=== PATIENT | female | born 1975 | race Caucasian/White ===

== ENCOUNTER 2018-04-21 08:04 | Inpatient (IN) | payer OTHER ==
[2018-04-20 08:35] VITALS: BMI 43.4
[2018-04-21] MEDS ORDERED: BUPIVACAINE HCL/PF 0.5% (5MG/ML) 10 ML VIAL ONE (09:16)
[2018-04-21] MEDS ORDERED: fentaNYL CITRATE 250 MCG/5 ML VIAL ONE (09:30)
[2018-04-21] MEDS ORDERED: DEXAMETHASONE SOD PHOSPHATE 4 MG/1 ML VIAL ONE (09:31)
[2018-04-21] MEDS ORDERED: PROPOFOL 20 ML ONE (09:31)
[2018-04-21] MEDS ORDERED: MIDAZOLAM HCL 2 MG/2 ML SINGLE DOSE VIAL ONE ×3 (09:31→09:52)
[2018-04-21] MEDS ORDERED: ROCURONIUM BROMIDE 50 MG/5 ML VIAL ONE (09:31)
[2018-04-21] MEDS ORDERED: LIDOCAINE HCL/PF 2% SDV 5ML VIAL ONE (09:31)
[2018-04-21] MEDS ORDERED: DEXAMETHASONE SOD PHOSPHATE/PF 10 MG/ML SDV ONE (09:51)
[2018-04-21] MEDS ORDERED: ROPIVACAINE HCL 0.5% 30ML VIAL ONE (09:51)
--- NOTE | 2018-04-21 09:57 | HP ---
History & Physical Update - History History: No Change - Physical Physical: No Change - Assessment Assessment: No Change - Plan Plan: No Change (Initial H&P is complete/accurate and locate din patient's paper chart. No new complaints or medications.)
[2018-04-21] MEDS ORDERED: ceFAZolin SODIUM 1 GM VIAL IVPB ONE (10:25)
[2018-04-21] MEDS ORDERED: DESFLURANE GAS 240 ML BOTTLE IH ONE (10:43)
[2018-04-21] MEDS ORDERED: ONDANSETRON 4 MG/2 ML VIAL IVPUSH PRN (12:41)
[2018-04-21] MEDS ORDERED: LACTATED RINGERS SOLUTION 1,000 ML IV SCH (12:45)
[2018-04-21] MEDS ORDERED: BUPIVACAINE HCL/PF (5 MG/ML) 30 ML VIAL IJ ONE (12:52)
--- NOTE | 2018-04-21 13:03 | OP ---
<Keith Jimenez - Last Filed: 04/21/18 13:01> Operative Note - Note: Operative Date: 04/21/18 Pre-Operative Diagnosis: Morbid obesity due to excess calories Operation: Robotic sleeve gastrectomy Post-Operative Diagnosis: Same as Pre-op Surgeon: Jeremy Raygoza Financial Reporting Specialist: Keith Jimenez Anesthesia: General Estimated Blood Loss (mls): 50 Fluid Volume Replaced (mls): 800 Operative Report Dictated: Yes <Jeremy Raygoza - Last Filed: 04/21/18 13:22> Operative Note - Note: Operation: Robotic lysis of adhesions, wedge liver biopsy, EGD Post-Operative Diagnosis: Other (Hepatomegaly, intraabdominal adhesions) Specimens Removed: Greater curvature of the stomach, wedge liver biopsy
[2018-04-21] MEDS ORDERED: HYDROmorphone HCL CARPU-JECT 1 MG/1 ML DISP.SYRIN IVPB PRN ×2 (13:04→13:29)
--- NOTE | 2018-04-21 13:04 | SURG ---
Surgery Stock Counter Note Stock Counter: Keith Jimenez PA-C Date of Service: 04/21/18 Diagnosis: Morbid obesity due to excess calories Procedure: Robotic sleeve gastrectomy I was present for the entirety of the operative procedure. For further detail, please refer to operative report.
[2018-04-21] MEDS ORDERED: FAMOTIDINE 20 MG/50 ML IVPB 20 MG/50 ML MG IVPB ONE ×2 (13:15→15:15)
[2018-04-21] MEDS: ACETAMINOPHEN 1000 MG/100 ML VIAL (NON FORMULARY) IVPB SCH ×2 (13:23→20:48)
[2018-04-21] MEDS ORDERED: morphine SULFATE 4 MG/ML VIAL IVPUSH PRN (13:50)
[2018-04-21] MEDS: SODIUM CHLORIDE 1,000 ML IV SCH ×2 (14:00→22:00)
[2018-04-21] MEDS: METOCLOPRAMIDE HCL INJECTION 10 MG/2 ML VIAL IVPUSH SCH ×2 (14:40→20:47)
[2018-04-21 14:58] LABS: HEMATOCRIT 36.9 % (32.4-45.2); HEMOGLOBIN 11.5 GM/dL (10.7-15.3); MCH 21.3 pg (25.7-33.7); MCHC 31.2 g/dl (32.0-36.0); MEAN CELL VOLUME 68.3 fl (80-96); MEAN PLT VOLUME 8.8 fl (7.5-11.1); PLATELET COUNT 236 K/MM3 (134-434); RDW 14.6 % (11.6-15.6); WHITE BLOOD COUNT 14.9 K/mm3 (4.0-10.0)
[2018-04-21 15:17] LABS: ALBUMIN 3.5 g/dl (3.4-5.0); ANION GAP 12 (8-16); BLOOD UREA NITROGEN 14 mg/dL (7-18); CALCIUM 8.1 mg/dL (8.5-10.1); CHLORIDE 103 mmol/L (98-107); CO2 23 mmol/L (21-32); CREATININE 0.8 mg/dL (0.55-1.02); GLUCOSE,RANDOM 139 mg/dL (74-106); POTASSIUM 4.3 mmol/L (3.5-5.1); SODIUM 138 mmol/L (136-145)
[2018-04-21 15:19] LABS: ALK PHOS 48 U/L (45-117); BILIRUBIN,TOTAL 0.4 mg/dL (0.2-1.0); TOT PROT 6.9 g/dl (6.4-8.2)
[2018-04-21 15:32] LABS: SGOT/AST 466 U/L (15-37); SGPT/ALT 508 U/L (12-78)
--- NOTE | 2018-04-21 16:33 | SPEC ---
DATE OF OPERATION: 04/21/2018 SURGEON: Jeremy Raygoza MD RETAIL FIELD REPRESENTATIVE: Keith Jimenez PA-C and JIM Banda PREOPERATIVE DIAGNOSES: 1. Morbid obesity. 2. Body mass index of 43.4. POSTOPERATIVE DIAGNOSES: 1. Morbid obesity. 2. Body mass index of 43.4. 3. Intra-abdominal adhesions. 4. Hepatomegaly. PROCEDURES: 1. Diagnostic laparoscopy. 2. Robotic vertical sleeve gastrectomy. 3. Robotic lysis of adhesions. 4. Robotic wedge liver biopsy. 5. Esophagogastroduodenoscopy. SPECIMEN: 1. Greater curvature of stomach. 2. Wedge liver biopsy. ESTIMATED BLOOD LOSS: 50 mL DRAIN: None. BOUGIE: Size 36-Kenyan. ANESTHESIA: GET. REASON FOR PROCEDURE: This is a 42-year-old female who presented to the office for weight loss options. After describing different options, she decided to proceed with a robotic, possible open vertical sleeve gastrectomy and possible wedge liver biopsy and upper endoscopy. RISKS AND BENEFITS: After describing the different options for management of weight loss, the patient decided to proceed with a robotic laparoscopic, possible open vertical sleeve gastrectomy. The patient was seen by the respective subspecialities and cleared for surgery. The risks and benefits of the procedure were explained. These included bleeding, infection, hernia, OH, DVT, PE, injury to surrounding structures including the liver, colon, bowel, spleen, esophagus, vessel injury, nerve injury, weight regain, gastric leak, staple line leak, sleeve leak, obstruction, vitamin deficiency, hair loss, and as some of the possible complications. The patient understood and signed informed consent. DESCRIPTION OF PROCEDURE: The patient was placed supine on the operating room table. The patient underwent general endotracheal intubation. A Prescott catheter was inserted by the nursing staff. The arms were brought out at 90 degrees and secured. A foot board was placed and the legs were secured laterally with padding. The abdomen was prepped and draped in the usual sterile fashion. A time-out was performed. An incision was made superior and to the left of the umbilicus. A Veress needle was inserted. Pneumoperitoneum was established. Subsequently the Veress needle was removed. An 8-mm robotic trocar was placed under direct visualization with the laparoscope. Inspection of the abdominal cavity was performed. An 8-mm trocar was then placed in the left abdominal wall approximately 6 to 7 cm to the left of the initial trocar. An 8-mm robotic trocar was then placed in the left abdominal wall approximately 6 to 7 cm to the left of the initial trocar. A 12-mm robotic trocar was then placed in the right abdominal wall approximately 6 to 7 cm to the right of the initial trocar and an 8-mm robotic trocar placed approximately 6 to 7 cm lateral to the 12-mm trocar. A stab wound was made in the subxiphoid area and a Geri clamp inserted and removed to dilate the tract. A Rahul liver retractor was inserted. The post was secured at the bedside by the nursing staff. The patient was placed in steep reverse Trendelenburg position and the Rahul liver retractor was used to secure the liver towards the anterior abdominal wall. The robot was brought over the field and docked. Dissection was performed at the console. The pylorus was identified and 6 cm proximal to it the lesser sac was entered using the vessel sealer. From this point cephalad all lateral attachments to the greater curvature of the stomach including the short gastric vessels were ligated using the vessel sealer towards the gastrosplenic and gastrophrenic ligaments. Once this was done in its entirety, all tubes within the nasal or oropharyngeal cavity including a temperature probe was confirmed to be removed by Anesthesia. The bougie was then inserted by Anesthesia. Transection of the stomach was then begun staying adjacent to the bougie, but away from the angularis. Transection of the stomach was performed near the portion of the stomach where the lesser sac was entered. Two robotic green vickie were used at this location. Robotic blue vickie were then used for the remainder of the transection until the greater curvature of the stomach was fully transected. Again this was done staying close to the bougie. Care was taken to stay away from the angle of His cephalad. The staple line was then inspected. Hemostasis was identified. A leak test was then performed. The stomach was clamped distally to the staple line. Irrigation solution was placed in the left upper quadrant and air insufflated by Anesthesia into the sleeve. No leaks were identified and no obstruction was identified. This was done throughout the staple line. At this point, the irrigation solution was suctioned and again hemostasis noted. A wedge liver biopsy was then performed. A portion of the left lobe of the liver was identified and an edge of it grasped. Using electrocautery a wedge of this portion of the liver was excised. The specimen was removed from the abdominal cavity and sent off the field. Hemostasis of the biopsy site as attained using electrocautery. The robotic instruments were then removed. The robot was undocked from the operative field. The 12-mm robotic trocar was removed and the greater curvature specimen removed from this site using a sponge stick wetzel. The specimen was inspected and the Veress needle inserted. The specimen insufflated adequately and no leak was identified. The staple line was noted to be straight and intact. A Jude-Cristian device was then used to close the fascia with a 0 Vicryl suture at this site. The liver retractor was removed under direct visualization. Pneumoperitoneum was desufflated and the fascial suture was secured. Hemostasis was noted at all incision sites and Marcaine was injected at all incision sites. All incision sites were closed using 4-0 Biosyn. Sterile dressings were applied. The patient tolerated the procedure well and was transferred to the recovery room in stable condition with a Prescott catheter intact. The patient was transferred to telemetry for further monitoring. In addition, there were noted to be intraabdominal adhesions from the omentum to the liver. These were carefully dissected and taken down using the vessel sealer. This was performed during the part of the procedure in which the greater curvature of the stomach was freed. The patient tolerated the procedure well and transferred to recovery room in stable condition. Jarred BABIN/[id number]
[2018-04-21] MEDS: ONDANSETRON 4 MG/2 ML VIAL IVPUSH SCH ×3 (16:49→20:47)
[2018-04-21] MEDS ORDERED: MORPHINE SULFATE 2 MG/ML VIAL IVPUSH PRN (17:13)
[2018-04-21] MEDS: FAMOTIDINE 20 MG/50 ML IVPB 20 MG/50 ML MG IVPB SCH (21:15)
[2018-04-21] MEDS: ENOXAPARIN NA (PORCINE) 40 MG/0.4 ML DISP.SYRIN SQ SCH (21:15)
[2018-04-22] MEDS: ACETAMINOPHEN 1000 MG/100 ML VIAL (NON FORMULARY) IVPB SCH ×2 (01:01→08:45)
[2018-04-22] MEDS: ONDANSETRON 4 MG/2 ML VIAL IVPUSH SCH ×4 (01:01→12:45)
[2018-04-22] MEDS: METOCLOPRAMIDE HCL INJECTION 10 MG/2 ML VIAL IVPUSH SCH ×3 (01:01→12:45)
[2018-04-22] MEDS: SODIUM CHLORIDE 1,000 ML IV SCH (04:00)
[2018-04-22] MEDS ORDERED: PROMETHAZINE HCL 25 MG/1 ML VIAL IVPB PRN (04:14)
[2018-04-22 07:34] LABS: HEMOGLOBIN 10.3 GM/dL (10.7-15.3); MCH 22.2 pg (25.7-33.7); MCHC 32.1 g/dl (32.0-36.0); MEAN PLT VOLUME 8.6 fl (7.5-11.1); PLATELET COUNT 181 K/MM3 (134-434); RBC 4.63 M/mm3 (3.60-5.2); RDW 14.8 % (11.6-15.6); WHITE BLOOD COUNT 10.9 K/mm3 (4.0-10.0)
[2018-04-22 08:34] LABS: ALBUMIN 3.3 g/dl (3.4-5.0); ANION GAP 6 (8-16); BLOOD UREA NITROGEN 7 mg/dL (7-18); CHLORIDE 108 mmol/L (98-107); CO2 28 mmol/L (21-32); CREATININE 0.5 mg/dL (0.55-1.02); GLUCOSE,RANDOM 120 mg/dL (74-106); SODIUM 142 mmol/L (136-145)
[2018-04-22 08:40] LABS: ALK PHOS 37 U/L (45-117); BILIRUBIN,TOTAL 0.5 mg/dL (0.2-1.0); SGOT/AST 343 U/L (15-37); TOT PROT 6.4 g/dl (6.4-8.2)
[2018-04-22 08:55] LABS: SGPT/ALT 491 U/L (12-78)
[2018-04-22] MEDS: ENOXAPARIN NA (PORCINE) 40 MG/0.4 ML DISP.SYRIN SQ SCH (09:25)
[2018-04-22] MEDS: FAMOTIDINE 20 MG/50 ML IVPB 20 MG/50 ML MG IVPB SCH (09:26)
[2018-04-22] MEDS ORDERED: oxyCODONE HCL 5 MG TABLET PO PRN (11:22)
[2018-04-22] MEDS ORDERED: SODIUM CHLORIDE 1,000 ML IV SCH (11:30)
--- NOTE | 2018-04-22 11:31 | DS ---
Physical Exam: SUBJECTIVE: POD#1 robotic assisted gastric sleeve patient seen and examined at bedside. Patient states she had two episodes of vomiting, nursing reports small amounts, last night but has had no issues since starting Reglan. Nausea is improved this morning and she is passing gas, She states the pain is controlled and she denies any fever, chills, CP or SOB. OBJECTIVE: Vital Signs Period Temp Pulse Resp BP Sys/Morgan Pulse Ox Last 24 Hr 98.4 F-99.1 F 70-113 15-23 130-154/66-96 95-99 PHYSICAL EXAM GENERAL: The patient is awake, alert, and fully oriented, in no acute distress. HEAD: Normal with no signs of trauma. EYES: sclera anicteric, conjunctiva clear. NECK: Trachea midline, LUNGS: unlabored resp on RA, no accessory muscle use. ABDOMEN: Obese, Soft, mildly tender to palpation, nondistended, no guarding, no rebound, dressings c/d/i with surrounding tissues intact no erythema-some mild bruising appropriate to status. EXTREMITIES: b/l LE compartments soft, supple and non-tender. 2+ pulses, warm, well-perfused, no edema. NEUROLOGICAL: Cranial nerves II through XII grossly intact. Normal speech, gait not observed. PSYCH: Normal mood, normal affect. SKIN: Warm, dry, normal turgor, no rashes or lesions noted. LABS Laboratory Results - last 24 hr 18 04/21/18 04/22/18 14:25 14:25 06:00 WBC 14.9 H D 10.9 H RBC 5.40 H 4.63 Hgb 11.5 10.3 L D Hct 36.9 32.0 L MCV 68.3 L 69.0 L MCH 21.3 L 22.2 L MCHC 31.2 L 32.1 RDW 14.6 14.8 Plt Count 236 181 D MPV 8.8 8.6 Sodium 138 Potassium 4.3 Chloride 103 Carbon Dioxide 23 Anion Gap 12 BUN 14 Creatinine 0.8 Creat Clearance w eGFR > 60 Random Glucose 139 H Calcium 8.1 L Total Bilirubin 0.4 AST 466 H ALT 508 H Alkaline Phosphatase 48 Total Protein 6.9 Albumin 3.5 04/22/18 06:00 WBC RBC Hgb Hct MCV MCH MCHC RDW Plt Count MPV Sodium 142 Potassium 4.0 Chloride 108 H Carbon Dioxide 28 Anion Gap 6 L BUN 7 Creatinine 0.5 L Creat Clearance w eGFR > 60 Random Glucose 120 H Calcium 8.0 L Total Bilirubin 0.5 D AST 343 H ALT 491 H Alkaline Phosphatase 37 L Total Protein 6.4 Albumin 3.3 L Upper GI series revealed no extravasation or evidence of leak. HOSPITAL COURSE: Patient admitted for robotic assisted gastric sleeve. She was admitted to telemetry post op. Patient reported two episodes of small amounts of vomiting which resolved with reglan. Narcotic and non-narcotic pain management control was achieved with an oral and IV approach. Patient Had Upper GI Series POD#1 and was found to have no leak so she was started on BS1D. Debbie-operative IV ABX were administered. DVT prophylaxis was achieved with SCDs and early ambulation. The patient ambulated with Physical Therapy and no services were recommended upon discharge. Narcotic scripts were given and The discharge instructions and an oral pain management plan were reviewed with the patient. The patient was seen by Dr Raygoza and She was deemed appropriate for discharge home with pain medication. Date of Admission:04/21/18 Date of Discharge: 04/22/18 Minutes to complete discharge: 25 Discharge Summary Reason For Visit: MORBID OBESITY Current Active Problems Hepatomegaly (Acute) Intra-abdominal adhesions (Acute) Morbid obesity due to excess calories (Acute) Condition: Stable - Instructions Diet, Activity, Other Instructions: [address] [facility], 1st Floor Jeremy Raygoza M.D. [address] [facility], 5th Floor [address] [place] [id number] [place] [address] Weight [facility] & [place] [address] Robotic, Bariatric and General Surgery Postoperative Instructions for Bariatric Surgery Activity: Resume normal everyday activity as tolerated. You may walk and climb stairs without any limitation. We encourage you to walk as often as you can Do not lift anything more than 10 pounds for 8 weeks. At that time, you can return to full activity, including the gym, without limitation. Do not drive a motor vehicle while taking prescribes narcotic pain medication. Wound Care: If you have a bandage in place, leave it on for 3 days. At that time you may remove the outer bandage. If there are strips of tape on the skin after removing the outer bandage, leave them in place. They will fall off by themselves. Do not remove them. If there is clear glue on the skin after removing the outer bandage, leave it in place. Do not pick at it or peel it off. You may shower after taking the outer bandage off, 3 days after your surgery. If incisions become red, warm or open, please call the office. Diet: Continue a sugar-free, non-carbonated Clear liquid diet three times a day for the first week-Stage I diet. In addition, you should drink 8 ounces of water every hour. When drinking, sips should be slow and steady, not large and quick. After the first week, call the office to be advanced to the next dietary stage. Do not advance stages until instructed. Your diet will be advanced over the phone each week. Medications/Pain Management: You may resume previous medications unless told otherwise. The pills may be swallowed whole or broken if scored. You may take the prescribed narcotic pain medication as needed. If the narcotic medication is not needed for pain control, you may take Tylenol. Avoid all other pain medications including Advil, Ibuprofen, Motrin, Aspirin, Naprosyn, Aleve, Celebrex. You will receive Pepcid. Please take this twice a day as prescribed. Dizziness,Headaches/Gas Pain: Make sure you are getting enough fluids daily. Patients on diuretics or water pills may need medication adjusted. Some fluids such as broth or Gatorade may help. Gas pains are common in the first few weeks after surgery. At times they can be worse than surgical pain. Walking can help. You can also use Mylanta, Maalox, or Gas-X. Vomiting/Nausea: This may occur if you eat too fast, don't chew, or eat too much. Go back to fluids. If the vomiting or nausea persists, call the office. Constipation/Diarrhea: You may experience a change in bowel habits. Many things affect this, including a decrease in food intake, not enough fluid and taking pain medication. Some people experience diarrhea after the barium swallow in x-ray. If either persist, call the office. Follow up: Call the office at [phone] for an appointment 2 weeks after your surgical procedure. Disposition: HOME - Home Medications Comprehensive Discharge Medication List: Ambulatory Orders Multivitamin [One Daily] 1 each PO DAILY 04/20/18 Famotidine 20 mg PO BID #60 tablet 06/19/18 Ondansetron [Ondansetron Odt] 8 mg PO BID PRN #20 tab.rapdis 04/21/18 oxyCODONE HCL [Roxicodone -] 5 mg PO Q4H PRN #30 tablet MDD 6 04/21/18 Problem List - Problems (1) Morbid obesity due to excess calories Assessment/Plan: POD #1 gastric sleeve doing well with vomiting and nausea resolved. 1) start BS1D today 2) OOB as tolerated 3) DVT prophylaxis 4) d/c home after dinner pending tolerating diet Evaluation and plan discussed with Dr Raygoza Code(s): E66.01 - MORBID (SEVERE) OBESITY DUE TO EXCESS CALORIES This patient is new to me today: Yes Date on this admission: 04/22/18 Emergency Visit: No Critical Care patient: No - Discharge Referral Referred to [facility] No
[2018-04-22 14:34] VITALS: BP 134/68; PULSE 77; TEMP 98.8
--- NOTE | 2018-04-22 15:29 | PATH ---
Surgical Pathology Report Patient Name: LEONIDES MARINELLI [facility]. Rec. #: [id number] /Age/Gender: 1975 (Age: 42) / F Account: [id number] Location: 4 SO PEDS/ADOL Taken: 04/21/2018 Received: 04/21/2018 Reported: 04/22/2018 Physicians: Jeremy Raygoza M.D. Specimen(s) Received A: GREATER CURVATURE STOMACH B: LIVER BIOPSY Clinical History Morbid obesity Final Diagnosis A. GREATER CURVATURE STOMACH, LAPAROSCOPIC VERTICAL SLEEVE GASTRECTOMY: SEGMENT OF STOMACH SHOWING MILD CHRONIC GASTRITIS. IMMUNOSTAINING IS NEGATIVE FOR H. PYLORI ORGANISMS. B. 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 TRICHROME STAIN SHOWS PATCHY PERIVENULAR AND PERICELLULAR FIBROSIS, CONSISTENT WITH FIBROSIS STAGE I (BRUNT'S CRITERIA). IRON STAIN IS NEGATIVE FOR SIDEROSIS. COMMENT: STEATOHEPATITIS MAY BE ASSOCIATED WITH DIABETES MELLITUS, METABOLIC SYMPTOMS, OBESITY, MEDICATIONS, ALCOHOL USE, ETC. CLINICAL CORRELATION RECOMMENDED. Electronically Signed Howard Marshall M.D. Gross Description A. Received in formalin, labeled "greater curvature of stomach," is a 142 gram, 18.0 x 4.5 x 3.5 cm. portion of stomach with a stapled margin of resection. The serosa is quinones-mir with minimal attached fat. The mucosa is quinones-red with focally flattened folds. No mucosal masses are identified. Third Mate sections are submitted in one cassette. B. Received in formalin labeled "liver biopsy," is a 1.7 x 1.4 x 0.6 cm quinones portion of soft tissue, consistent with a portion of liver. The specimen is bisected and entirely submitted in one cassette. DL/04/21/2018 saudi/04/21/2018
--- NOTE | 2018-04-22 15:40 | PN ---
Progress Note (short form) - Note Progress Note: POD 1 Mild nausea Several episodes of vomiting but improved Pain controlled Vital Signs Period Temp Pulse Resp BP Sys/Morgan Pulse Ox Last 24 Hr 98.4 F-99.1 F 70-105 16-20 133-145/68-73 97-98 Abd soft CBC,CMP WBC 10.9 K/mm3 (4.0-10.0) H 04/22/18 06:00 RBC 4.63 M/mm3 (3.60-5.2) 04/22/18 06:00 Hgb 10.3 GM/dL (10.7-15.3) L D 04/22/18 06:00 Hct 32.0 % (32.4-45.2) L 04/22/18 06:00 MCV 69.0 fl (80-96) L 04/22/18 06:00 MCH 22.2 pg (25.7-33.7) L 04/22/18 06:00 MCHC 32.1 g/dl (32.0-36.0) 04/22/18 06:00 RDW 14.8 % (11.6-15.6) 04/22/18 06:00 Plt Count 181 K/MM3 (134-434) D 04/22/18 06:00 MPV 8.6 fl (7.5-11.1) 04/22/18 06:00 Sodium 142 mmol/L (136-145) 04/22/18 06:00 Potassium 4.0 mmol/L (3.5-5.1) 04/22/18 06:00 Chloride 108 mmol/L (98-107) H 04/22/18 06:00 Carbon Dioxide 28 mmol/L (21-32) 04/22/18 06:00 Anion Gap 6 (8-16) L 04/22/18 06:00 BUN 7 mg/dL (7-18) 04/22/18 06:00 Creatinine 0.5 mg/dL (0.55-1.02) L 04/22/18 06:00 Creat Clearance w eGFR > 60 (>60) 04/22/18 06:00 Random Glucose 120 mg/dL (74-106) H 04/22/18 06:00 Calcium 8.0 mg/dL (8.5-10.1) L 04/22/18 06:00 Total Bilirubin 0.5 mg/dL (0.2-1.0) D 04/22/18 06:00 AST 343 U/L (15-37) H 04/22/18 06:00 ALT 491 U/L (12-78) H 04/22/18 06:00 Alkaline Phosphatase 37 U/L (45-117) L 04/22/18 06:00 Total Protein 6.4 g/dl (6.4-8.2) 04/22/18 06:00 Albumin 3.3 g/dl (3.4-5.0) L 04/22/18 06:00 Serum , Qual Negative 04/21/18 08:13 UGI: no leak/obstruction Clears OOB Discharge home
== END 2018-04-22 16:34 | disposition home or self-care (01) | DRG 621 ==
LOC: JSAMEDAYSX 08:04 → J4S 16:00
PROVIDERS: ADMIT Surgery; ATTEND Surgery
PROC: 0FB24ZX Excision of Left Lobe Liver, Percutaneous Endoscopic Approach, Diagnostic (ICD-10-PCS; 2018-04-21)
PROC: 0DJ08ZZ Inspection of Upper Intestinal Tract, Via Natural or Artificial Opening Endoscopic (ICD-10-PCS; 2018-04-21)
PROC: 0DB64Z3 Excision of Stomach, Percutaneous Endoscopic Approach, Vertical (ICD-10-PCS; principal; 2018-04-21 10:00)
PROC: 0DNW4ZZ Release Peritoneum, Percutaneous Endoscopic Approach (ICD-10-PCS; 2018-04-21 10:00)
DX: E66.01 Morbid (severe) obesity due to excess calories (principal); Z68.41 Body mass index [BMI] 40.0-44.9, adult; K66.0 Peritoneal adhesions (postprocedural) (postinfection); R16.0 Hepatomegaly, not elsewhere classified; K29.50 Unspecified chronic gastritis without bleeding
CPT/HCPCS: 36415; 74241-TC-FY; 80053; 84703; 85027; 86850; 86900; 86901; 88305-TC; 94010; 94760; J0131; J7030